=== PATIENT | male | born 1950 | race Two or more races ===

== ENCOUNTER → 2017-12-12 | Outpatient (CLI) | payer MEDICARE ==
[~2017-12-12] MED LIST: ATORVASTATIN CA10 MG PO; COLACE100 MG PO; DIOVAN HCT 80-1 EACH PO; IOPAMIDOL 370 MG/ML 200 ML INFUS..BTL INJ ONE; OMEPRAZOLE40 MG PO; SODIUM CHLORIDE 0.9% 250ML 250 ML ONE; SODIUM CHLORIDE 0.9% 50ML 50 ML ONE; TYLENOL WITH C1 EACH PO
[2017-12-12 10:51] LABS: CREATININE, SERUM 1.21 mg/dL (0.72-1.25)
--- NOTE | 2017-12-12 12:17 | Diagnostic Imaging Report ---
EXAM: CT Abdomen and Pelvis WITHOUT and WITH contrast INDICATION: Malignant neoplasm of right kidney. Gross hematuria. Prior partial kidney removal. Hypertension. COMPARISON: None. TECHNIQUE: Abdomen and pelvis were scanned utilizing a multidetector helical scanner from the lung base to the pubic symphysis before and after administration of IV contrast. Coronal and sagittal reformations were obtained. Hematuria protocol was performed. IV CONTRAST: 150 mL of Isovue-370 ORAL CONTRAST: Water RADIATION DOSE: Total DLP: 1033.47 mGy*cm Estimated effective dose: (DLP x 0.015 x size factor) mSv COMPLICATIONS: None FINDINGS: LINES and TUBES: None. LOWER THORAX: Unremarkable HEPATOBILIARY: No focal hepatic lesions. No biliary ductal dilation. GALLBLADDER: No radio-opaque stones or sludge. No wall thickening. SPLEEN: No splenomegaly. PANCREAS: No focal masses or ductal dilatation. ADRENALS: No adrenal nodules KIDNEYS/URETERS: Kidneys enhance symmetrically. No hydronephrosis. There are several too small to characterize hypodensities in the right and left kidneys likely due to small cysts. Several larger simple appearing left renal cysts are seen. Postsurgical changes are seen at the posterior right kidney with scarring in the adjacent fat. No stones. GI TRACT: No abnormal distention, wall thickening, or evidence of bowel obstruction. Scattered diverticulosis without evidence of diverticulitis.. PELVIC ORGANS/BLADDER: Unremarkable. LYMPH NODES: No lymphadenopathy. VESSELS: Scattered atherosclerotic calcification.. PERITONEUM / RETROPERITONEUM: No free air or fluid. BONES: Unremarkable. SOFT TISSUES: Unremarkable. IMPRESSION: 1. Postsurgical changes are seen at the posterior right kidney with scarring in the adjacent fat. 2. No urinary tract dictations or hydronephrosis. There are several too small to characterize hypodensities in the right and left kidneys likely due to small cysts. Several larger simple appearing left renal cysts are seen. Signed by: Dr. Henrry Livingston M.D. on 12/12/2017 12:12 PM
== END ==
LOC: CT 09:32
PROVIDERS: ATTEND Urology
DX: C64.1 Malignant neoplasm of right kidney, except renal pelvis (principal)
CPT/HCPCS: 36415; 74178; 82565; 84520; J7050; Q9967

== ENCOUNTER → 2018-05-20 | Outpatient (CLI) | payer MEDICARE ==
[~2018-05-20] MED LIST changes: -IOPAMIDOL 370 MG/ML 200 ML INFUS..BTL INJ ONE; -SODIUM CHLORIDE 0.9% 250ML 250 ML ONE; -SODIUM CHLORIDE 0.9% 50ML 50 ML ONE
--- NOTE | 2018-05-20 10:02 | Diagnostic Imaging Report ---
EXAMINATION: PA and lateral views of the chest. COMPARISON: None CLINICAL HISTORY: Malignant neoplasm of kidney DISCUSSION: The lungs are well-inflated. No focal airspace consolidation, pleural effusion, or pneumothorax. Atherosclerotic calcification of the thoracic aorta. Normal heart size. No pulmonary edema. No acute osseous abnormality. IMPRESSION: No acute cardiopulmonary abnormality. Signed by: Dr. Karan Guaman M.D. on 05/20/2018 9:58 AM
--- NOTE | 2018-05-20 10:25 | Diagnostic Imaging Report ---
EXAMINATION: Renal ultrasound. CLINICAL HISTORY :Malignant renal neoplasm COMPARISON: CT urogram 12/12/2017 TECHNIQUE: Grayscale and color Doppler evaluation of the kidneys and bladder was performed in transverse and longitudinal planes. DISCUSSION: RIGHT KIDNEY: The right kidney measures 7.9 cm in length and shows normal echogenicity. No solid mass lesion. No hydronephrosis, cystic lesion, or shadowing calculus. LEFT KIDNEY: The left kidney measures 10.6 cm in length and shows normal echogenicity. Multiple anechoic simple cysts without solid component or suspicious sonographic features are identified, measuring 3.6 x 4.1 x 5 cm projecting from the interpolar region, 1.5 x 1.7 x 1.9 cm, projecting from the upper pole, and 2.0 x 2.2 x 2.0 cm projecting medially from the upper pole. These lesions are grossly stable in size compared to prior CT urogram when accounting for differences in measurement technique. BLADDER: Right and left ureteral jets are identified. Bladder is unremarkable. IMPRESSION: Postsurgical changes of the right kidney without evidence of residual or recurrent mass lesion. Multiple simple left renal cysts. Signed by: Dr. Karan Guaman M.D. on 05/20/2018 10:22 AM
== END ==
LOC: US 09:32
PROVIDERS: ATTEND Urology
DX: C64.1 Malignant neoplasm of right kidney, except renal pelvis (principal); N28.1 Cyst of kidney, acquired
CPT/HCPCS: 71046; 76770

== ENCOUNTER → 2018-11-26 | Outpatient (CLI) | payer MEDICARE ==
--- NOTE | 2018-11-26 11:13 | Diagnostic Imaging Report ---
EXAM: US RENAL RETROPERITONEAL COMP DATE: 11/26/2018 9:38 AM INDICATION: Malignant neoplasm of the right kidney COMPARISON: 05/20/2018 FINDINGS: There are postsurgical changes from partial right nephrectomy. The right kidney measures 7.9 x 5.1 x 4.9 cm with cortical thickness of 1.9 cm. Cortical echogenicity is within normal limits. There is no evidence for solid renal mass, hydronephrosis, or shadowing calculi. The left kidney is normal in size measuring 10.5 x 5.5 x 5.0 cm with cortical thickness of 2.5 cm. Cortical echogenicity is within normal limits. Multiple cysts are seen within the left kidney measuring 4.6 x 3.9 x 4.7 cm within the medial mid kidney, 2.5 x 2.2 x 2.3 cm within the superior lateral kidney, and 1.7 x 1.5 x 1.7 cm within the mid kidney. The cysts are grossly stable in size from the prior examination. There is no evidence for solid renal mass, hydronephrosis, or shadowing foci. The urinary bladder appears unremarkable with prevoid volume of 332 cc. Bilateral ureteral jets are noted. IMPRESSION: Stable post surgical changes of the right kidney. No evidence for solid renal mass. Left renal cysts. Signed by: Dr. Bravo Salgado MD on 11/26/2018 11:09 AM
--- NOTE | 2018-11-26 11:26 | Diagnostic Imaging Report ---
EXAM: CHEST 2 VIEWS DATE: 11/26/2018 9:38 AM INDICATION: Malignant neoplasm of the right kidney COMPARISON: 05/20/2018 FINDINGS: The trachea is midline. The lungs are symmetrically expanded without evidence for focal consolidation, pneumothorax, or significant pleural effusion. The cardiomediastinal silhouette is stable in appearance. No acute osseous abnormalities identified. IMPRESSION: No acute cardiopulmonary process identified. Signed by: Dr. Bravo Salgado MD on 11/26/2018 11:23 AM
== END ==
LOC: US 09:31
PROVIDERS: ATTEND Urology
DX: C64.1 Malignant neoplasm of right kidney, except renal pelvis (principal); N28.1 Cyst of kidney, acquired
CPT/HCPCS: 71046; 76770

== ENCOUNTER → 2019-05-26 | Outpatient (CLI) | payer MEDICARE ==
--- NOTE | 2019-05-26 09:00 | Diagnostic Imaging Report ---
EXAM: Renal Ultrasound INDICATION: ^RENAL CA RT COMPARISON: Renal ultrasound 11/26/2018 TECHNIQUE: Transverse and longitudinal images of the kidneys and bladder were obtained. FINDINGS: Right Kidney: Status post right partial nephrectomy. Length: 7.6 cm Appearance: Normal echogenicity. Collecting system: No hydronephrosis Stones: None Cyst/Mass: None Left Kidney: Length: 11.1 cm Appearance: Normal echogenicity. Collecting system: No hydronephrosis Stones: None Cyst/Mass: Mid pole exophytic 3.8 x 4.3 x 4.3 cm anechoic cyst with a thin internal septation appears essentially unchanged in size from 11/26/2018. Other previously described anechoic simple cysts remain unchanged, the largest at the upper pole measuring up to 2.3 x 2.3 x 2.0 cm. Bladder: Bilateral ureteral jets visualized. No mass or calculi. Prevoid volume estimate of 249cc. The prostate measures 2.6 x 2.9 x 2.8 cm with volume estimate of 11 cc. IMPRESSION: Status post right partial nephrectomy. No renal calculi or hydronephrosis. Left renal cysts unchanged, including the most notable Bosniak 2 cyst at the midpole, now measuring 3.8 x 4.3 x 4.3 cm. Signed by: Gm Adams MD on 05/26/2019 8:57 AM
--- NOTE | 2019-05-26 09:08 | Diagnostic Imaging Report ---
EXAMINATION: CHEST 2 VIEWS INDICATION: Renal malignancy COMPARISON: Chest radiograph 11/26/2018 FINDINGS: LINES/TUBES:None LUNGS:The lungs are well-inflated. No focal consolidation or pulmonary edema. PLEURA:No pleural effusion or pneumothorax. MEDIASTINUM:The cardiomediastinal silhouette appears normal in size and shape. Atherosclerotic calcifications of the thoracic aorta. BONES/SOFT TISSUES:No acute osseous injury. ABDOMEN:No free air under the diaphragm. IMPRESSION: No focal pneumonia or pulmonary edema. No radiographically apparent pulmonary nodule. Signed by: Gm Adams MD on 05/26/2019 9:05 AM
== END ==
LOC: US 07:43
PROVIDERS: ATTEND Urology
DX: C64.1 Malignant neoplasm of right kidney, except renal pelvis (principal)
CPT/HCPCS: 71046; 76770

== ENCOUNTER → 2020-01-21 | Outpatient (CLI) | payer MEDICARE ==
[~2020-01-21] MED LIST changes: +IOPAMIDOL 370 MG/ML 200 ML INFUS..BTL INJ ONE; +SODIUM CHLORIDE 0.9% 50ML 50 ML ONE
[2020-01-21 10:50] LABS: BLOOD UREA NITROGEN 11 mg/dL (7-26); BUN/CREATININE RATIO 10 (6-25); EST GLOMERULAR FILTRATION RATE > 60 ML/MIN (60-)
--- NOTE | 2020-01-21 15:09 | Diagnostic Imaging Report ---
CT of the abdomen and pelvis, with and without contrast, 01/21/2020. History: Right renal neoplasm, hematuria. Comparison: Renal ultrasound 05/26/2019, CT 12/12/2017. Technique: Multidetector CT scanning of the abdomen and pelvis was performed from the level of the lung bases to the inferior pubic rami before and after intravenous administration of contrast. Imaging was performed during arterial, venous, and delayed phases. Coronal and sagittal multiplanar reformations were obtained. RADIATION DOSE: Total DLP: 1559 mGy*cm Dose modulation, iterative reconstruction, and/or weight based adjustment of the mA/kV was utilized to reduce the radiation dose to as low as reasonably achievable. Discussion: LUNG BASES: No visualized abnormalities. ABDOMEN: Postoperative changes are present along the posterior aspect of the right kidney with adjacent scarring. There is no evidence of enhancing renal lesion. Multiple nonenhancing circumscribed hypodense cysts are present in both kidneys, the largest in the left interpolar region measuring 5.0 x 4.7 cm. There is no evidence of nephrolithiasis or hydronephrosis. The ureters are normal. The liver, gallbladder, biliary tree, spleen, pancreas, and adrenal glands are normal. The hepatic vein, portal vein, and splenic vein are patent. The abdominal aorta is within normal limits for size. Evaluation of bowel is limited without oral contrast. There is no bowel dilatation. Diverticuli are seen within the descending and sigmoid colon without evidence of adjacent inflammation. The appendix is visualized and is normal. There is no evidence of adenopathy or free fluid. PELVIS: The bladder, prostate, and seminal vesicles are normal in appearance. Prostate measures 3 x 3.9 x 2.6 cm with estimated volume of 20 mL. There is no evidence of free fluid or adenopathy. BONES AND SOFT TISSUES: Degenerative changes are present throughout the lumbar spine without evidence of lytic or sclerotic lesion. IMPRESSION: 1. Status post partial right nephrectomy with adjacent postsurgical scarring. Benign bilateral renal cysts are present. No new or suspicious renal findings. 2. Colonic diverticulosis without evidence of diverticulitis. Signed by: Long Jackson on 01/21/2020 3:06 PM
== END ==
LOC: CT 10:06
PROVIDERS: ATTEND Urology
DX: C64.1 Malignant neoplasm of right kidney, except renal pelvis (principal); R31.0 Gross hematuria
CPT/HCPCS: 36415; 74178; 82565; 84520; Q9967

== ENCOUNTER → 2020-09-20 | Outpatient (CLI) | payer MEDICARE ==
[~2020-09-20] MED LIST changes: -IOPAMIDOL 370 MG/ML 200 ML INFUS..BTL INJ ONE; -SODIUM CHLORIDE 0.9% 50ML 50 ML ONE
== END ==
LOC: US 09:40
PROVIDERS: ATTEND Urology
DX: C64.1 Malignant neoplasm of right kidney, except renal pelvis (principal)
CPT/HCPCS: 71046; 76770

== ENCOUNTER → 2021-01-27 | Outpatient (CLI) | payer MEDICARE ==
[~2021-01-27] MED LIST changes: +IOPAMIDOL 370 MG/ML 200 ML INFUS..BTL INJ ONE; +SODIUM CHLORIDE 0.9% 0 ML ONE; +SODIUM CHLORIDE 0.9% 50ML 50 ML ONE
[2021-01-27 10:41] LABS: CREATININE, SERUM 1.02 mg/dL (0.72-1.25)
== END ==
LOC: CT 09:43
PROVIDERS: ATTEND Urology
DX: C64.1 Malignant neoplasm of right kidney, except renal pelvis (principal)
CPT/HCPCS: 36415; 74178; 82565; 84520; Q9967; J7050

== ENCOUNTER → 2021-12-28 | Outpatient (CLI) | payer MEDICARE ==
[~2021-12-28] MED LIST changes: -IOPAMIDOL 370 MG/ML 200 ML INFUS..BTL INJ ONE; -SODIUM CHLORIDE 0.9% 0 ML ONE; -SODIUM CHLORIDE 0.9% 50ML 50 ML ONE
== END ==
LOC: US 07:58
PROVIDERS: ATTEND Urology
DX: C64.1 Malignant neoplasm of right kidney, except renal pelvis (principal)
CPT/HCPCS: 71046; 76770

== ENCOUNTER → 2022-06-04 | Outpatient (CLI) | payer MEDICARE | LOC: US 09:35 | PROVIDERS: ATTEND Urology | DX: C64.1 Malignant neoplasm of right kidney, except renal pelvis (principal); N40.1 Benign prostatic hyperplasia with lower urinary tract symptoms; N28.1 Cyst of kidney, acquired | CPT/HCPCS: 76770; 76857 ==

== ENCOUNTER → 2023-11-13 | Outpatient (REF) | payer MEDICARE | LOC: US 07:43 | PROVIDERS: ATTEND Urology | DX: C64.1 Malignant neoplasm of right kidney, except renal pelvis (principal); N28.1 Cyst of kidney, acquired | CPT/HCPCS: 71046; 76770; 76857 ==

== ENCOUNTER → 2024-04-01 | Day surgery (SDC) | payer MEDICARE ==
[~2024-04-01] MED LIST changes: +AMLODIPINE BESYL5 MG PO; +ASPIRIN81 MG PO; +D3-5000125 MCG PO; +FLOMAX0.4 MG PO; +LOSARTAN-HCTZ1 EAC1 PO
[2024-04-01] MEDS: LACTATED RINGER'S 1,000 ML ONE (08:59)
[2024-04-01 09:26] LABS: BASOPHILS % 0.4 % (0.0-1.0); EOSINOPHILS # (AUTO) 0.2 (0.0-0.4); EOSINOPHILS % 1.5 % (0.0-6.0); HEMATOCRIT 50.7 % (38.2-49.6); LYMPHOCYTES % 19.8 % (18.0-39.1); MEAN CORPUSCULAR HEMOGLOBIN 30.2 pg (28-32); MEAN CORPUSCULAR HGB CONC 33.5 g/dL (31-35); MEAN CORPUSCULAR VOLUME 90.2 fL (81-99); MONOCYTES # (AUTO) 0.9 (0.2-0.8); MONOCYTES % 8.6 % (4.4-11.3); NEUTROPHILS % 69.4 % (38.7-80.0); RED BLOOD COUNT 5.62 x10e6/uL (4.3-5.7); RED CELL DISTRIBUTION WIDTH 12.9 % (11.7-14.4); WHITE BLOOD COUNT 10.08 x10e3/uL (4.8-10.8)
[2024-04-01 09:43] LABS: PLATELET COUNT 271 x10e3/uL (140-360)
[2024-04-01 12:18] VITALS: TEMP 97
[2024-04-01 12:40] VITALS: BP 123/78; PULSE 71; RESP 18; O2SAT 99
== END | disposition home or self-care (01) ==
LOC: OR 08:34
PROVIDERS: ATTEND Internal Medicine Gastroenterology
DX: Z12.11 Encounter for screening for malignant neoplasm of colon (principal); D12.5 Benign neoplasm of sigmoid colon; K57.30 Diverticulosis of large intestine without perforation or abscess without bleeding; K59.00 Constipation, unspecified; K64.8 Other hemorrhoids; I10 Essential (primary) hypertension; E78.5 Hyperlipidemia, unspecified; N40.0 Benign prostatic hyperplasia without lower urinary tract symptoms; F17.200 Nicotine dependence, unspecified, uncomplicated; Z01.810 Encounter for preprocedural cardiovascular examination; Z79.82 Long term (current) use of aspirin; Z79.899 Other long term (current) drug therapy
CPT/HCPCS: 36415; 45385; 85025; 88305; 93005; J7121; 45378

== ENCOUNTER → 2024-11-03 | Outpatient (REF) | payer MEDICARE | LOC: US 09:42 | PROVIDERS: ATTEND Urology | DX: C64.1 Malignant neoplasm of right kidney, except renal pelvis (principal); N28.1 Cyst of kidney, acquired | CPT/HCPCS: 71046; 76770; 76857 ==